=== PATIENT | female | born 1975 | race Caucasian/White ===

== ENCOUNTER 2016-12-14 17:58 | Emergency (ER) | payer OTHER ==
[2016-12-14 18:35] LABS: BASO % 0.1 % (0.1-1.2); EOS % 0.1 % (0.7-5.8); GRAN # 15.8 10_X3_uL (1.6-6.1); GRAN % 95.2 % (34.0-71.1); HEMATOCRIT 42.7 % (34-45); HEMOGLOBIN 14.3 g/dL (11.2-15.7); LYMPH # 0.3 10_X3_uL (1.2-3.7); LYMPH % 1.8 % (19.3-51.7); MEAN CORPUSCULAR HEMOGLOBIN 29.8 pg (27.0-33.0); MEAN CORPUSCULAR HGB CONC 33.5 g/dL (32.0-36.0); MEAN PLATELET VOLUME 10.7 fl (7.5-11.5); MONO # 0.5 10_X3_uL (0.2-0.9); MONO % 2.8 % (4.7-12.5); PLATELET COUNT 336 x10_3/uL (182-369); RED CELL DISTRIBUTION WIDTH 13.1 % (11.7-14.4); WHITE BLOOD COUNT 16.6 x10_3/uL (4.0-10.0)
[2016-12-14 18:49] LABS: ALBUMIN 4.3 gm/dL (3.4-5.0); ALKALINE PHOSPHATASE 86 U/L (50-136); ALT/SGPT 101 U/L (3.5-33.9); AMYLASE 53 U/L (15.62-74.58); AST/SGOT 116 U/L (7.04-26.96); BILIRUBIN,TOTAL 0.78 mg/dL (0.0-1.0); BLOOD UREA NITROGEN 16 mg/dL (7-18); CALCIUM 8.9 mg/dL (8.7-10.7); CARBON DIOXIDE 22 mmol/L (21-32); CREATININE 0.5 mg/dL (0.6-1.3); GLUCOSE,RANDOM 135 mg/dL (70-99); LIPASE 26 U/L (6.75-60.75); POTASSIUM 3.8 mmol/L (3.5-5.1); SODIUM 139 mmol/L (136-145); TOTAL PROTEIN 7.4 gm/dL (6.4-8.2)
== END 2016-12-14 23:00 | disposition home or self-care (01) ==
LOC: ER 17:58
PROVIDERS: Emergency Medicine
DX: A04.9 Bacterial intestinal infection, unspecified (principal); N28.1 Cyst of kidney, acquired; R11.2 Nausea with vomiting, unspecified; R19.7 Diarrhea, unspecified; R10.9 Unspecified abdominal pain; Z88.8 Allergy status to other drugs, medicaments and biological substances
CPT/HCPCS: 36415; 74150; 80053; 82150; 83690; 85025; 96361; 96374; 99070; 99284-25